=== PATIENT | female | born 1985 | race Caucasian/White ===

== ENCOUNTER 2016-12-09 13:30 | Emergency (ER) | payer MEDICAID ==
[~2016-12-09] VITALS: Ht 157.5 cm; Wt 113.0 kg
[2016-12-09 13:45] VITALS: BP 129/61
[2016-12-09 17:57] LABS: CLARITY URINE CLEAR (CLEAR); COLOR URINE YELLOW (YELLOW); GLUCOSE URINE NEGATIVE (NEGATIVE); KETONES URINE NEGATIVE (NEGATIVE); LEUKOCYTE ESTERASE URINE NEGATIVE (NEGATIVE); NITRITE URINE NEGATIVE (NEGATIVE); OCCULT BLOOD URINE NEGATIVE (NEGATIVE); PH URINE 5.5 (4.5-8.0); PROTEIN URINE NEGATIVE (NEGATIVE); UROBILINOGEN URINE 0.2 E.U./dL (0.2-1.0)
== END 2016-12-09 19:33 | disposition home or self-care (01) ==
LOC: ER 16:01
DX: R30.0 Dysuria (principal)
CPT/HCPCS: 81003; 81025; 99283

== ENCOUNTER 2019-04-19 19:08 | Emergency (ER) | payer MEDICAID ==
[~2019-04-19] VITALS: Ht 157.5 cm; Wt 114.0 kg
[2019-04-19 20:48] LABS: KETONES URINE NEGATIVE (NEGATIVE); LEUKOCYTE ESTERASE URINE TRACE (NEGATIVE); NITRITE URINE NEGATIVE (NEGATIVE); OCCULT BLOOD URINE 3+ (NEGATIVE); PROTEIN URINE 3+ (NEGATIVE); SPECIFIC GRAVITY URINE 1.029 (1.005-1.030)
[2019-04-19 20:49] LABS: COLOR URINE RED (YELLOW)
[2019-04-19 20:50] LABS: CLARITY URINE TURBID (CLEAR)
[2019-04-19 22:41] LABS: BASOPHILS % 0.7 % (0.0-2.0); EOSINOPHILS % 1.7 % (0.0-5.0); HEMATOCRIT. 38.2 % (36.0-48.0); HEMOGLOBIN. 12.9 g/dL (12.0-16.0); LYMPHOCYTES % 39.3 % (20.0-50.0); MEAN CORPUSCULAR VOLUME 91.6 fL (81.0-99.0); MEAN PLATELET VOLUME 9.8 fl (7.4-10.4); MONOCYTES % 5.4 % (2.0-8.0); NEUTROPHILS % 52.9 % (40.0-76.0); PLATELET 203 x1000/uL (130-400); RED BLOOD CELL COUNT 4.17 mill/uL (4.2-5.4); RED CELL DISTRIBUTION WIDTH 13.6 % (11.6-14.6)
[2019-04-19 22:44] LABS: CHLORIDE 110 mEq/L (98-107)
[2019-04-19 22:53] LABS: HCG SCREEN NEGATIVE
[2019-04-19] MEDS ORDERED: NITROFURANTOIN 100MG M/M CAPSULE PO ONE (23:00)
[2019-04-19 23:45] VITALS: BP 136/75
== END 2019-04-19 23:47 | disposition home or self-care (01) ==
LOC: ER 19:08
DX: N92.0 Excessive and frequent menstruation with regular cycle (principal); N39.0 Urinary tract infection, site not specified; R53.1 Weakness; Z98.890 Other specified postprocedural states; Z98.51 Tubal ligation status
CPT/HCPCS: 36415; 81003; 81025; 84703; 99283

== ENCOUNTER 2021-08-13 11:20 | Emergency (ER) | payer MEDICAID, OTHER ==
[~2021-08-13] VITALS: Ht 165.1 cm; Wt 115.0 kg
[2021-08-13] MEDS ORDERED: HYDROCODONE/ACETAMINOPHEN 5/325MG TABLET PO ONE (13:00)
[2021-08-13] MEDS ORDERED: BACITRACIN ZINC OINT UDPKT TOP ONE (13:00)
[2021-08-13 13:02] VITALS: BP 158/88
[2021-08-13] MEDS ORDERED: BO1 TP (13:57)
== END 2021-08-13 14:26 | disposition home or self-care (01) ==
LOC: ER 13:22
DX: S00.83XA Contusion of other part of head, initial encounter (principal); S00.31XA Abrasion of nose, initial encounter; R03.0 Elevated blood-pressure reading, without diagnosis of hypertension; W20.8XXA Other cause of strike by thrown, projected or falling object, initial encounter; Y93.89 Activity, other specified; Y92.048 Other place in boarding-house as the place of occurrence of the external cause
CPT/HCPCS: 70486; 73060; 99284

== ENCOUNTER 2024-05-21 23:12 | Emergency (ER) | payer OTHER ==
[~2024-05-21] VITALS: Ht 157.5 cm; Wt 144.0 kg
[~2024-05-21 23:12] MED LIST: BO1 TP
[2024-05-21 23:19] VITALS: O2SAT 97
[2024-05-22] MEDS: KETOROLAC 30MG/ML VIAL IM ONE (00:24)
[2024-05-22] MEDS: ACETAMINOPHEN 325MG TABLET PO ONE (00:25)
[2024-05-22] MEDS ORDERED: ACET-2708 MT (00:54)
[2024-05-22] MEDS ORDERED: GUAI600T26 MT (00:54)
[2024-05-22 01:07] VITALS: BP 148/78; PULSE 103; RESP 18; TEMP 38.28084; O2SAT 98
== END 2024-05-22 01:08 | disposition home or self-care (01) ==
LOC: ER 23:12
DX: B34.9 Viral infection, unspecified (principal); Z98.51 Tubal ligation status
CPT/HCPCS: 99283; 96372; J1885